=== PATIENT | female | born 1985 | race Caucasian/White ===

== ENCOUNTER 2017-05-22 05:50 | Inpatient (IN) | payer OTHER ==
[~2017-05-22] VITALS: Ht 152.4 cm; Wt 103.4 kg
[~2017-05-22 05:50] MED LIST: FISH OIL300 MG PO; PRENATAL CAPSU1 EACH PO; ZOFRAN4 MG PO
--- NOTE | 2017-05-22 09:38 | PR ---
[facility] [address] [facility] [place], [place] [address] Signed Progress Notes IP Datetime Report Generated by CPN: 05/22/2017 09:38 PROGRESS NOTES: [id number] Other Impressions: Induction with GBS+ Procedures: Artificial ROM Plan: Continue present management; Anticipate Vaginal Delivery VITAL SIGNS: [id number] Vital Signs: Reviewed; Within Normal Limits EXAM: [id number] Dilatation: 4.5 Effacement: 50 Station: -3 Uterine Contractions: none MEMBRANES: [id number] Membrane Status: Ruptured Amniotic Fluid Color: Clear ROM Note: AROM without difficulty Comments: Received 1st dose PCN @ 0715 Would like Epidural when contractions get started Fetus A: [id number] FHR Baseline: 130 Variability: Moderate 6-25bpm Accelerations: 15X15 Presentation: Vertex Fetus B: [id number] Signing Physician: Jerrica Navas MD CC: *Electronically Signed* 05/22/1738 JERRICA NAVAS MD PATIENT NAME: HERBIE VICTOR PROGRESS NOTE DATE OF : 87 PHYSICIAN: JERRICA NAVAS MD RPT #: [id number] REPORT IS CONFIDENTIAL AND NOT TO BE RELEASED WITHOUT AUTHORIZATION
--- NOTE | 2017-05-23 12:22 | PR ---
[facility] [address] [facility] [place] [address] Signed PP Progress Notes Datetime Report Generated by CPN: 05/23/2017 12:22 SUBJECTIVE: [id number] Pain: Within normal limits Nausea/Vomiting: Denies Vital Signs: [id number] Vital Signs: Reviewed; Within Normal Limits Notable Details: PP Hgb/Hct = 10.7/31.4 EXAM: [id number] Abdomen/Uterus: Normal Lochia: Normal Extremities: Normal IMPRESSION/PLAN/PROCEDURES: [id number] Impression: Normal progression Plan: Continue present management Procedures: None Progress Notes: Doing well, without complaint. Home tomorrow Signing Physician: Jerrica Navas MD CC: *Electronically Signed* 05/23/17 1222 JERRICA NAVAS MD PATIENT NAME: HERBIE VICTOR PROGRESS NOTE DATE OF : [birth year] PHYSICIAN: JERRICA NAVAS MD RPT #: [id number] REPORT IS CONFIDENTIAL AND NOT TO BE RELEASED WITHOUT AUTHORIZATION
--- NOTE | 2017-05-24 09:43 | PR ---
[facility] [address] [facility] [place], [place] [address] Signed PP Progress Notes Datetime Report Generated by CPN: 05/24/2017 09:43 SUBJECTIVE: [id number] Pain: Within normal limits Nausea/Vomiting: Denies Flatus: Yes Vital Signs: [id number] Vital Signs: Reviewed; Within Normal Limits Notable Details: PP Hgb/Hct = 10.7/31.4 EXAM: [id number] Cardiovascular: Normal Respiratory: Normal Abdomen/Uterus: Normal Lochia: Normal Vulva/Perineum: Normal Breasts: Normal CVA Tenderness: Normal Extremities: Normal Incision: Not Applicable Progress: Normal IMPRESSION/PLAN/PROCEDURES: [id number] Impression: Normal progression Plan: Discharge Procedures: None Progress Notes: patient doing well wanting to go home. GBS pos Signing Physician: Aimee Peterosn MD CC: *Electronically Signed* 05/24/17 0943 AIMEE PETERSON MD PATIENT NAME: HERBIE VICTOR PROGRESS NOTE DATE OF : 87 PHYSICIAN: AIMEE PETERSON MD RPT #: [id number] REPORT IS CONFIDENTIAL AND NOT TO BE RELEASED WITHOUT AUTHORIZATION
== END 2017-05-24 14:45 | disposition home or self-care (01) | DRG 775 ==
LOC: FBC 06:08 → EDSTATUS 05-24 10:36 → FBCO 05-24 14:34 → FBC 05-24 14:45
PROVIDERS: ADMIT General Practice
PROC: 10E0XZZ Delivery of Products of Conception, External Approach (ICD-10-PCS; principal; 2017-05-22)
PROC: 0UQMXZZ Repair Vulva, External Approach (ICD-10-PCS; 2017-05-22)
PROC: 10907ZC Drainage of Amniotic Fluid, Therapeutic from Products of Conception, Via Natural or Artificial Opening (ICD-10-PCS; 2017-05-22)
PROC: 00HU33Z Insertion of Infusion Device into Spinal Canal, Percutaneous Approach (ICD-10-PCS; 2017-05-22)
PROC: 3E0R3CZ (ICD-10-PCS; 2017-05-22)
DX: O99.824 Streptococcus B carrier state complicating childbirth (principal); O69.81X0 Labor and delivery complicated by cord around neck, without compression, not applicable or unspecified; O71.82 Other specified trauma to perineum and vulva; O43.193 Other malformation of placenta, third trimester; Z3A.39 39 weeks gestation of pregnancy; Z37.0 Single live birth
CPT/HCPCS: 36415; 85027; J2405; J2540; J2590; J3010

== ENCOUNTER 2018-08-27 06:20 | Inpatient (IN) | payer OTHER ==
[~2018-08-27] VITALS: Ht 180.3 cm; Wt 103.0 kg
--- OUTSIDE RECORDS SUMMARY | ~2018-08-27 | XMS | Clinical Summary ---
Demographics + + + | Address | [address] | | | [place] [address] | + + + | Home Phone | | + + + | Preferred Language | Unknown | + + + | Marital Status | Unknown | + + + | Uatsdin Affiliation | Unknown | + + + | Race | Unknown | + + + | Ethnic Group | Unknown | + + + Author + + + | Author | [facility] [employer] | + + + | Organization | [facility] [employer] | + + + | Address | Unknown | + + + | Phone | Unavailable | + + + Support + + +---------+ + | Name | Relationship | Address | Phone | + + +---------+ + | Maurisio Bashir | ECON | Unknown | | + + +---------+ + Care Team Providers + +------+ + | Care Collections Professional Name | Role | Phone | + +------+ + PP | Unavailable | + +------+ + Allergies No Known Allergies Current Medications + + +-------+---------+------+------+-------+ | Prescription | Sig. | Disp. | Refills | Star | End | Statu | | | | | | t | Date | s | | | | | | Date | | | + + +-------+---------+------+------+-------+ | Vit-Fe | Take 1 tablet by | | | | | Activ | | Fumarate-FA | mouth daily with | | | | | e | | ( | breakfast. | | | | | | | MULTIVITAMIN & | | | | | | | | MINERALS W IRON/FA) | | | | | | | | 27-0.8 MG TABS | | | | | | | | tablet | | | | | | | + + +-------+---------+------+------+-------+ Active Problems Not on file Social History + +-------+ +--------+------+ | Tobacco Use | Types | Packs/Day | Years | Date | | | | | Used | | + +-------+ +--------+------+ | Never Smoker | | | | | + +-------+ +--------+------+ + + +---------+ + | Alcohol Use | Drinks/We | oz/Week | Comments | | | ek | | | + + +---------+ + | No | | | | + + +---------+ + + + + + | Currently | Estimated Date of Delivery | Comments | + + + + | Yes | | | + + + + + + + | Sex Assigned at | Date Recorded | | | | + + + | Not on file | | + + + Last Filed Vital Signs + + + + | Vital Sign | Reading | Time Taken | + + + + | Blood Pressure | 110/70 | 01/22/2017 3:38 PM PST | + + + + | Pulse | 98 | 01/22/2017 3:38 PM PST | + + + + | Temperature | - | - | + + + + | Respiratory Rate | - | - | + + + + | Oxygen Saturation | 99% | 01/22/2017 3:38 PM PST | + + + + | Inhaled Oxygen | - | - | | Concentration | | | + + + + | Weight | 100.5 kg (221 lb 9.6 | 01/22/2017 3:38 PM PST | | | oz) | | + + + + | Height | 177.8 cm (5' 10") | 01/22/2017 3:38 PM PST | + + + + | Body Mass Index | 31.8 | 01/22/2017 3:38 PM PST | + + + + Plan of Treatment + + + + + | Health Maintenance | Due Date | Last Done | Comments | + + + + + | Vaccine: | | | | | Dtap/Tdap/Td (1 - | 5 | | | | Tdap) | | | | + + + + + | Cervical Cancer | | | | | Screening (Pap) | 6 | | | + + + + + | Vaccine: Influenza | | | | | (#1) | 8 | | | + + + + + Results Not on filefrom Last 3 Months Insurance + +--------+ +------+-------+ + | Payer | Benefi | Subscriber | Type | Phone | Address | | | t Plan | ID | | | | | | / | | | | | | | Group | | | | | + +--------+ +------+-------+ + | MEDICAID | [employer] | [id number] | | | [address] | | | [place] | | | | [place] | | | [place] | | | | [phone] | | | REALTY SPECIALIST | | | | | + +--------+ +------+-------+ + + +--------+ +--------+ + + | Guarantor Name | Accoun | Relation to | Date | Phone | Billing Address | | | t Type | Patient | of | | | | | | | | | | + +--------+ +--------+ + + | JAILENE BASHIR | Person | Self | [birth year] Home: | [address] | | | [place] | | 1984 | [phone] | [place] | | | [place] | | | [phone] | [phone] | + +--------+ +--------+ + +
--- OUTSIDE RECORDS SUMMARY | ~2018-08-27 | XMS ---
Demographics + + + | Address | [address] | | | [place] [address] | + + + | Preferred Language | Unknown | + + + | Marital Status | Unknown | + + + | Catholic Affiliation | Unknown | + + + | Race | Unknown | + + + | Ethnic Group | Unknown | + + + Author + + + | Author | [facility] | + + + | Organization | [facility] | + + + | Address | [address] | | | [place] [address] | + + + | Phone | | + + + Care Team Providers + + + + | Care Associate Professor Of Education Name | Role | Phone | + + + + Unavailable | Unavailable | + + + + PROBLEMS Unknown Problems ALLERGIES + + + + +---------+ | Substance | Reaction | Event Type | Date | Status | + + + + +---------+ | N.K.D.A. | Unknown | Non Drug | May, | Unknown | | | | Allergy | | | + + + + +---------+ SOCIAL HISTORY No smoking Hx information available PLAN OF CARE + +---------+ | Activity | Details | + +---------+ +---+ | | +---+ + + + | Follow Up | 3 Weeks Reason:null | + + + VITAL SIGNS + + + + | Height | 70 in | 2017-06-10 | + + + + | Weight | 208 lbs | 2017-06-10 | + + + + | BMI | 29.84 kg/m2 | 2017-06-10 | + + + + | Temperature | 98.3 degrees Fahrenheit | 2017-06-10 | + + + + | Heart Rate | 80 /min | 2017-06-10 | + + + + | Blood pressure systolic | 106 mm Hg | 2017-06-10 | + + + + | Blood pressure diastolic | 70 mm Hg | 2017-06-10 | + + + + MEDICATIONS + + + + +--------+ + +--------+ | Medicati | Instruct | Dosage | Frequenc | Start | End Date | Duration | Status | | on | ions | | y | Date | | | | + + + + +--------+ + +--------+ | | Orally | 1 | 24h | | | | Active | | DHA 200 | Once a | capsule | | | | | | | MG | day | with a | | | | | | | | | meal | | | | | | + + + + +--------+ + +--------+ RESULTS No Results PROCEDURES + + + + + | Procedure | Date Ordered | Related Diagnosis | Body Site | + + + + + | visit | June 10, 2017 | | | + + + + + IMMUNIZATIONS No Known Immunizations"
--- OUTSIDE RECORDS SUMMARY | ~2018-08-27 | XMS ---
Demographics + + + | Address | [address] | | | [place] [address] | + + + | Preferred Language | Unknown | + + + | Marital Status | Unknown | + + + | Sikhism Affiliation | Unknown | + + + | Race | Unknown | + + + | Ethnic Group | Unknown | + + + Author + + + | Author | [facility] | + + + | Organization | [facility] | + + + | Address | [address] | | | [place] [address] | + + + | Phone | | + + + Care Team Providers + + + + | Care Digital Performance Analyst Name | Role | Phone | + + + + Unavailable | Unavailable | + + + + PROBLEMS Unknown Problems ALLERGIES No Known Allergies SOCIAL HISTORY No smoking Hx information available PLAN OF CARE + +---------+ | Activity | Details | + +---------+ +---+ | | +---+ + + + | Follow Up | prn Reason:null | + + + VITAL SIGNS MEDICATIONS + + + + +--------+ + [...] | + + + + + | OB CARE - Vaginal | May 22, 2017 | | | | Del., antepartum, & | | | | | | | | | + + + + + IMMUNIZATIONS No Known Immunizations"
--- NOTE | 2018-08-27 12:07 | PR ---
[facility] [address] [facility] [place], [place] [address] Signed Progress Notes IP Datetime Report Generated by CPN: 08/27/2018 12:06 PROGRESS NOTES: [id number] Impression: Normal progression of labor Procedures: Artificial ROM Plan: Continue present management; Anticipate Vaginal Delivery VITAL SIGNS: J8375869 Vital Signs: Reviewed; Within Normal Limits EXAM: [id number] Dilatation: 5.0 Effacement: 50 Station: -3 Uterine Contractions: rare MEMBRANES: S5824672 Membrane Status: Ruptured Amniotic Fluid Color: Clear ROM Note: AROM without difficulty. Moderate clear fluid. Head well-applied to cervix Comments: Comfortable with Epidural. Had bradycardia right after Epidural, given Ephedrine Fetus A: [id number] FHR Baseline: 150 Variability: Moderate 6-25bpm Accelerations: 15X15 Presentation: Vertex Fetus B: [id number] Signing Physician: Jerrica Navas MD Copies: ~ *Electronically Signed* 08/27/18 1206 JERRICA NAVAS MD PATIENT NAME: HERBIE VICTOR PROGRESS NOTE DATE OF : 87 PHYSICIAN: JERRICA NAVAS MD RPT #: [id number] REPORT IS CONFIDENTIAL AND NOT TO BE RELEASED WITHOUT AUTHORIZATION
--- NOTE | 2018-08-27 15:55 | PR ---
[facility] [address] [place], [place] [address] Signed Progress Notes IP Datetime Report Generated by CPN: 08/27/2018 15:55 PROGRESS NOTES: [id number] Impression: Normal progression of labor Procedures: Artificial ROM Plan: Continue present management; Anticipate Vaginal Delivery VITAL SIGNS: E0990181 Vital Signs: Reviewed; Within Normal Limits EXAM: Q0861708 Dilatation: 10.0 Effacement: 100 Station: 0 Uterine Contractions: every b3-4 minutes MEMBRANES: Z3190601 Membrane Status: Ruptured Amniotic Fluid Color: Clear ROM Note: AROM without difficulty. Moderate clear fluid. Head well-applied to cervix Comments: Epidural not working , so given Intrathecal, now comfortble. Tried pushing x1 , but not able to push, so will wait a few more contracitons and try again. Fetus A: [id number] FHR Baseline: 140 Variability: Moderate 6-25bpm Accelerations: 10X10 Presentation: Vertex Fetus B: [id number] Signing Physician: Med Navas MD Copies: ~ *Electronically Signed* 08/27/18 1555 MED NAVAS MD PATIENT NAME: VALENTEHERBIE WU PROGRESS NOTE DATE OF : 87 PHYSICIAN: MED NAVAS MD RPT #: [id number] REPORT IS CONFIDENTIAL AND NOT TO BE RELEASED WITHOUT AUTHORIZATION
--- NOTE | 2018-08-28 08:13 | PR ---
[facility] [address] [facility] [place] [address] Signed PP Progress Notes Datetime Report Generated by CPN: 08/28/2018 08:13 SUBJECTIVE: [id number] Pain: Within normal limits Nausea/Vomiting: Denies Vital Signs: [id number] Vital Signs: Reviewed; Within Normal Limits Notable Details: PP Hgb/Hct = 12.2/37.0 EXAM: [id number] Abdomen/Uterus: Normal Lochia: Normal Extremities: Normal IMPRESSION/PLAN/PROCEDURES: [id number] Impression: Normal progression Plan: Continue present management Procedures: None Progress Notes: Doing well, without complaint. Signing Physician: Jerrica Navas MD Copies: ~ *Electronically Signed* 08/28/18812 JERRICA NAVAS MD PATIENT NAME: HERBIE VICTOR PROGRESS NOTE DATE OF : 87 PHYSICIAN: JERRICA NAVAS MD RPT #: [id number] REPORT IS CONFIDENTIAL AND NOT TO BE RELEASED WITHOUT AUTHORIZATION
--- NOTE | 2018-08-29 10:29 | PR ---
[facility] [address] [facility] [place] [address] Signed PP Progress Notes Datetime Report Generated by CPN: 08/29/2018 10:29 SUBJECTIVE: [id number] Pain: Within normal limits Nausea/Vomiting: Denies Vital Signs: [id number] Vital Signs: Reviewed; Within Normal Limits Notable Details: PP Hgb/Hct = 12.2/37.0 EXAM: [id number] Abdomen/Uterus: Normal Lochia: Normal Extremities: Normal IMPRESSION/PLAN/PROCEDURES: [id number] Impression: Normal progression Plan: Discharge Procedures: None Progress Notes: Doing well, ready to go home. Signing Physician: Jerrica Navas MD Copies: ~ *Electronically Signed* 08/29/18 1029 JERRICA NAVAS MD PATIENT NAME: HERBIE VICTOR PROGRESS NOTE DATE OF : 87 PHYSICIAN: JERRICA NAVAS MD RPT #: [id number] REPORT IS CONFIDENTIAL AND NOT TO BE RELEASED WITHOUT AUTHORIZATION
== END 2018-08-29 11:35 | disposition home or self-care (01) | DRG 807 ==
LOC: FBC 06:20
PROVIDERS: ADMIT General Practice
PROC: 10E0XZZ Delivery of Products of Conception, External Approach (ICD-10-PCS; principal; 2018-08-27)
PROC: 10907ZC Drainage of Amniotic Fluid, Therapeutic from Products of Conception, Via Natural or Artificial Opening (ICD-10-PCS; 2018-08-27)
PROC: 00HU33Z Insertion of Infusion Device into Spinal Canal, Percutaneous Approach (ICD-10-PCS; 2018-08-27)
PROC: 3E0R3BZ Introduction of Anesthetic Agent into Spinal Canal, Percutaneous Approach (ICD-10-PCS; 2018-08-27)
DX: O80 Encounter for full-term uncomplicated delivery (principal); Z37.0 Single live birth; Z3A.39 39 weeks gestation of pregnancy
CPT/HCPCS: 36415; 85027; J2540; J2590; J2795; J3010; J7030; J7042; J7120

== ENCOUNTER 2022-02-12 22:41 | Emergency (ER) | payer OTHER ==
[~2022-02-12] VITALS: Ht 180.3 cm; Wt 109.0 kg
[2022-02-12] MEDS ORDERED: LIOTHYRONINE SO5 MCG PO (23:11)
[2022-02-12] MEDS ORDERED: LEVOTHYROXINE100 MCG PO (23:11)
[2022-02-13] MEDS ORDERED: HYDROCODON-ACE1 EA10 PO (01:20)
[2022-02-13] MEDS ORDERED: ONDANSETRON ODT4 MG PO (01:20)
--- NOTE | 2022-02-13 12:38 | EKG ---
[facility] [address] [facility] [place] [address] Signed Normal sinus rhythm Possible Left atrial enlargement Borderline ECG No previous ECGs available Confirmed by MYNOR MEEHAN MD ([id number]) on 02/13/2022 12:38:08 PM Electronically Signed By: MYNOR MEEHAN MD 02/13/22 1238 PATIENT NAME: HERBIE VICTOR Electrocardiogram DATE OF : 87 PHYSICIAN: MYNOR MEEHAN MD REPORT #: [id number] REPORT IS CONFIDENTIAL AND NOT TO BE RELEASED WITHOUT AUTHORIZATION
== END 2022-02-13 01:43 | disposition home or self-care (01) ==
LOC: ED 22:41
DX: K80.70 Calculus of gallbladder and bile duct without cholecystitis without obstruction (principal); R74.01 Elevation of levels of liver transaminase levels; E03.9 Hypothyroidism, unspecified; Z79.899 Other long term (current) drug therapy
CPT/HCPCS: 36415; 76705; 80053; 81001; 83690; 84484; 84703; 85025; 93005; 93010; 99285-25

== ENCOUNTER 2022-07-06 07:48 | Day surgery (SDC) | payer OTHER ==
[~2022-07-06] VITALS: Ht 180.3 cm; Wt 111.4 kg
[~2022-07-06 07:48] MED LIST changes: +HYDROCODON-ACE1 EA10 PO; +LEVOTHYROXINE100 MCG PO; +LIOTHYRONINE SO5 MCG PO; +ONDANSETRON ODT4 MG PO
--- NOTE | 2022-07-06 10:42 | NUR ---
07/06/22 [place]2 Myla Dean 1038- PT ARRIVES TO PACU NONAROUSABLE TO STIMULI WITH AN OPA IN PLACE. RESP EVEN AND UNLABORED. OXYGEN SAT HIGH 90'S TO 100% ON 6L VIA MASK. ICE PACK PLACED TO PT'S ABD.
--- NOTE | 2022-07-06 11:21 | NUR ---
1115-PATIENT BACK TO ROOM FROM PACU ON . RECEIVED REPORT FROM ROSSY TAMEZ. NOLBERTO IS DROWSY. RESP EVEN AND UNLABORED. RATES PAIN 3/10, DENIES NAUSEA. ALL 4 LAP SITES ARE CLEAN, DRY, AND INTACT. ICE PACK IN PLACE. PATIENT TAKING SIPS OF WATER. DECLINES SNACK AT THIS TIME. STATES SHE NEEDS TO USE THE RESTROOM BUT WILL WAIT A LITTLE BIT. AT BEDSIDE. CALL LIGHT WITHIN REACH.
--- NOTE | 2022-07-06 11:35 | NUR ---
1130-PATIENT STATES 6/10 PAIN AND NAUSEA. 1135-NAUSEA MEDICATION GIVEN PER EMAR. 1145-PATIENT UP TO SIDE OF BED. PATIENT DEINES NAUSEA BUT STATES SOME DIZZINESS. PATIENT THEN UP TO BEDSIDE COMMODE WITH 1 RN ASSIST AND HER . PATIENT VOIDED 400ML OF YELLOW URINE. 1150-PATIENT BACK TO BED. PAIN MEDICATION GIVEN PER EMAR. ISABEL HUGGER TURNED ON. AT BESIDE. CALL LIGHT WITHIN REACH.
--- NOTE | 2022-07-06 13:39 | NUR ---
1215-PATIENT LAYING IN BED WITH EYES CLOSED. RESP EVEN AND UNLABORED. RATES PAIN 5-6/10. DENIES NAUSEA. DRESSING HAS A SMALL AMOUNT OF RED DRAINAGE. ICE PACK IN PLACE. PATIENT HAS WATER AND CRACKERS IF NEEDED. AT BEDSIDE. CALL LIGHT WITHIN REACH.
--- NOTE | 2022-07-06 13:43 | NUR ---
1322-PATIENT LAYING IN BED WITH EYES CLOSED. AWAKES EASY AND ANSWERS QUESTIONS. RESP EVEN AND UNLABORED. RATES PAIN 3/10. DENIES NASUEA. DRESSINGS HAVE A SMALL AMOUNT OF RED DRAINAGE. ICE PACK IN PLACE. 1327-PATIENT UP TO RESTROOM WITH 1 RN ASSIST. GAIT STEADY AND TOLERATED WELL. 1335-PATIENT BACK TO BED. STATES NOT READY TO GO HOME AT THIS POINT. FEELS A LITTLE LIGHTHEADED. PATIENT EATING CRACKERS AND DRINKING WATER. CALL LIGHT WITHIN REACH.
--- NOTE | 2022-07-06 14:13 | NUR ---
1355-PATIENT READY TO GO HOME. PATIENT GETTING DRESSED. 1405-PROVIDED PATIENT WITH DISCHARGE INSTRUCTIONS. ALL QUESTIONS ANSWERED. PATIENT AMBULATES TO WHEELCHAIR. TOLERATED WELL. RIDE PROVIDED TO FRONT OF HOSPITAL WHERE WAS WAITING WITH THE CAR.
--- NOTE | 2022-07-07 08:14 | OR ---
[facility] [address] [place], [place] [address] Signed DATE OF OPERATION: 07/06/2022 SURGEON: Shan Frey MD PREOPERATIVE DIAGNOSES: 1. Chronic cholecystitis, cholelithiasis. 2. Biliary colic. POSTOPERATIVE DIAGNOSES: 1. Cholecystitis with cholelithiasis x3. 2. Biliary colic. 3. Cholesterolosis. PROCEDURE: Laparoscopic cholecystectomy without intraoperative cholangiogram. ESTIMATED BLOOD LOSS: None. FINDINGS: Jailene indeed had three stones in the gallbladder. Two stones measured about 12 mm or so in diameter. The other was probably less than 10 mm in diameter. She did have significant cholesterolosis. We could not pass the intraoperative cholangiocatheter pass the valves of Heister. We therefore abandoned our intraoperative cholangiogram. INDICATIONS: Jailene is a 37-year-old, obese female, asked to see me for her gallbladder. She has now had four children. All born vaginally. She and her have elected not to have any additional children. She has been having chest pain radiating through to her back in January of 2022. She had been to the emergency room for evaluation. Cardiac evaluation was negative. Liver function tests were elevated with a normal lipase and white count. Beta-HCG was negative. Ultrasound confirmed a dilated gallbladder with gallstones. The gallbladder wall was not thickened. The common bile duct was unremarkable at 3 mm. Her pain had resolved and she was allowed to go home from the emergency room. She was asked to follow up with me as a general surgeon. She has been doing well without any additional significant attacks of biliary colic. She is very busy taking care of the four children. She therefore had to consult with her family to decide on the best time to have her surgery. In the office, I had given her a brochure on the gallbladder. We had looked at the brochure page by page. She understands the location and function of the gallbladder. We discussed laparoscopic versus open Electronically Signed By: SHAN FREY MD 07/07/22 0814 PATIENT NAME: JAILENE VICTOR OPERATIVE REPORT DATE OF : 87 REPORT #: [id number] PHYSICIAN: SHAN FREY MD PCP: DEMARCUS REDMOND DO REPORT IS CONFIDENTIAL AND NOT TO BE RELEASED WITHOUT AUTHORIZATION [facility] [address] [place], [place] [address] Signed cholecystectomy. We reviewed the expected intraop and postop course. There is risk including, but not limited to bleeding, infection, scarring, change in contour of the skin, damage to bowel, damage to main bile duct, incisional hernias and other unforeseen comorbidities. She had expressed understanding and wished to proceed. PROCEDURE NOTE: I met with Jailene and her in the preop area. After this, she was taken in the operating room and placed in the supine position under general endotracheal tube anesthesia. She was given preoperative antibiotics along with subcutaneous heparin. SCDs were utilized. She was then prepped and draped in the usual sterile fashion. All trocars were placed in their usual positions under direct visualization of the camera without difficulty. We had taken pictures throughout for photodocumentation. The gallbladder had been grasped and elevated into the right upper quadrant. The triangle of Calot was dissected free with the help of a [place] dissectors. Several clips have been placed on the cystic artery. We then passed our intraoperative cholangiogram into the cystic duct. Unfortunately, would not pass through the valves of Heister. We therefore abandoned our intraoperative cholangiogram. The cystic duct stump was secured with a PDS Endoloop along with a single clip across the cystic duct stump to valentin its location. The gallbladder was then removed from the gallbladder fossa with the help of the cautery and placed into an EndoCatch bag. The right upper quadrant was irrigated and suctioned out until clear. We used our laparoscopic suturing device to pass 0-Vicryl sutures on either side of the fascia of the subxiphoid trocar site. This was tied down to close this fascia primarily. After this, all the gas was allowed to escape and all the trocars were removed along with the gallbladder. The gallbladder was opened on the back table for photodocumentation by our circulating nurse. It demonstrated the three gallstones in the significant cholesterolosis. We closed the fascia at the supraumbilical trocar site with interrupted [id number] and simple 0-Vicryl sutures. Local anesthetic was injected into all trocar sites. Each trocar site was irrigated and suctioned out until clear. The skin and dermis of each trocar site were reapproximated with interrupted 3-0 subcuticular Monocryl sutures. Dry gauze and tape were applied to all incisions. After this, Jailene was awakened from anesthesia, extubated in the OR, and taken to the recovery room in stable condition. Shan Frey MD ALB/MODL /[id number] Electronically Signed By: SHAN FREY MD 07/07/22 0814 PATIENT NAME: JAILENE VICTOR OPERATIVE REPORT DATE OF : 87 REPORT #: [id number] PHYSICIAN: SHAN FREY MD PCP: DEMARCUS REDMOND DO REPORT IS CONFIDENTIAL AND NOT TO BE RELEASED WITHOUT AUTHORIZATION [facility] [address] [facility] [place] [place] [address] Signed cc: MD Demarcus Moon DO Copies: SHAN FREY MD, ARIAN DO ~ Electronically Signed By: SHAN FREY MD 07/07/22 0814 PATIENT NAME: JAILENE VICTOR OPERATIVE REPORT DATE OF : 87 REPORT #: [id number] PHYSICIAN: SHAN FREY MD PCP: DEMARCUS REDMOND DO REPORT IS CONFIDENTIAL AND NOT TO BE RELEASED WITHOUT AUTHORIZATION
--- NOTE | 2022-07-09 12:15 | PATH ---
[facility] [address] [facility] [place], [place] [address] Signed SPECIMEN(S): A GALLBLADDER WITH STONES SPECIMEN SOURCE: A. GALLBLADDER WITH STONES CLINICAL HISTORY: Calculus of gallbladder with chronic cholecystitis FINAL PATHOLOGIC DIAGNOSIS: Gallbladder with stones: - Chronic calculous cholecystitis. - Mucosal cholesterolosis. JVR:lisa:C2NR MICROSCOPIC EXAMINATION: Histologic sections of all submitted blocks are examined by light microscopy. These findings, together with the gross examination, support the pathologic diagnosis. GROSS DESCRIPTION: The specimen, labeled "EA, gallbladder," is received in formalin and consists of Specimen: Previously opened gallbladder. Dimensions: 5.7 cm in length and 4.2 cm in inner circumference. Serosa: violaceous and smooth. Cystic Duct: unobstructed. Calculi: Four yellow gallstones within the container that range in size from 0.4-1.0 cm in greatest dimension. Mucosa: [place]-srinivasan and velvety with yellow flecking. Wall thickness: 0.5 cm. Lymph node: No pericystic lymph nodes are grossly identified. Additional: None. Manager Product Design sections are submitted in cassette (A1). JS (under the direct supervision of a pathologist) The Gross Description was prepared using a voice recognition system. The report was reviewed for accuracy; however, sound-alike word errors, addition and/or deletions may occur. If there is any question about this report, please contact Client Services. PERFORMING LABORATORY: The technical component was performed by [employer], Melanie Jiang, PATIENT NAME: HERBIE VICTOR PATHOLOGY DATE OF : 87 REPORT #: [id number] PHYSICIAN: BETTINA RIVAS PCP: DEMARCUS REDMOND DO REPORT IS CONFIDENTIAL AND NOT TO BE RELEASED WITHOUT AUTHORIZATION [facility] [address] [facility] [place], [place] [address] [place] [address] (CLIA# [id number]). Professional interpretation was performed by [facility] - [address] [address] (CLIA#: [id number]). Diagnostician: You Arteaga MD Pathologist Electronically Signed 07/09/2022 Copies: ~ PATIENT NAME: HERBIE VICTOR PATHOLOGY DATE OF : [birth year] REPORT #: [id number] PHYSICIAN: BETTINA RIVAS PCP: DEMARCUS REDMOND DO REPORT IS CONFIDENTIAL AND NOT TO BE RELEASED WITHOUT AUTHORIZATION
== END 2022-07-06 14:05 | disposition home or self-care (01) ==
LOC: DS 07:48
PROVIDERS: ATTEND Colon & Rectal Surgery
PROC: 0FT44ZZ Resection of Gallbladder, Percutaneous Endoscopic Approach (ICD-10-PCS; principal; 2022-07-06 09:15)
DX: K80.10 Calculus of gallbladder with chronic cholecystitis without obstruction (principal); E03.9 Hypothyroidism, unspecified; E66.9 Obesity, unspecified; Z68.34 Body mass index [BMI] 34.0-34.9, adult
CPT/HCPCS: J0131; J0690; J1100; J1644; J1885; J2001; J2250; J2405; J2550; J2704; J7121

== ENCOUNTER 2023-12-24 05:37 | Day surgery (SDC) | payer OTHER ==
[2023-12-19 09:40] VITALS: BP 124/82
[~2023-12-24] VITALS: Ht 180.3 cm; Wt 106.8 kg
[~2023-12-24 05:37] MED LIST changes: +OSTERA TABLET1 EACH PO; +PROBIOTIC1 EAC9 PO
[2023-12-24 05:56] VITALS: BP 120/79
[2023-12-24 10:11] VITALS: BP 109/69
[2023-12-24 11:14] VITALS: BP 110/73
[2023-12-24 12:09] VITALS: BP 110/68
--- NOTE | 2023-12-26 21:00 | OR ---
[facility] [address] [place], [place] [address] Signed DATE OF OPERATION: 12/24/2023 SURGEON: Lorrie Cartwright DO PREOPERATIVE DIAGNOSES: 1. Abnormal uterine bleeding. 2. Dysmenorrhea. 3. Adenomyosis. POSTOPERATIVE DIAGNOSES: 1. Abnormal uterine bleeding. 2. Dysmenorrhea. 3. Adenomyosis. PROCEDURES PERFORMED: 1. Total laparoscopic hysterectomy. 2. Bilateral salpingectomy. 3. Cystoscopy. TECHNICAL ANALYST: Christine Cobian MD ANESTHESIA: General. ESTIMATED BLOOD LOSS: 50 mL. SPECIMENS: 1. Uterus and cervix. 2. Bilateral fallopian tubes. DRAINS: Rivera to gravity. PACKING: None. FINDINGS: Normal external genitalia with normal clitoris, urethral meatus, bilateral Millsap's Electronically Signed By: LORRIE CARTWRIGHT DO (JD) 12/26/23 2100 PATIENT NAME: HERBIE VICTOR OPERATIVE REPORT DATE OF : [birth year] REPORT #: [id number] PHYSICIAN: LORRIE CARTWRIGHT DO (JD) PCP: DEMARCUS REDMOND DO REPORT IS CONFIDENTIAL AND NOT TO BE RELEASED WITHOUT AUTHORIZATION [facility] [address] [place], [place] [address] Signed Bartholin's glands. Normal vagina with good apical support. Normal-appearing cervix. On laparoscopy, normal bilateral tubes and ovaries with a globular enlarged uterus consistent with adenomyosis. Hemostasis at the end of the procedure. On cystoscopy, normal bladder with normal bladder dome and bilateral ureteral jets. COMPLICATIONS: None. INDICATIONS: Ms. Victor is a very pleasant 38-year-old female with a history of worsening heavy painful periods. Ultrasound was suggestive of adenomyosis and the patient has failed multiple modes of conservative therapy. She now wishes to proceed with definitive treatment of adenomyosis with hysterectomy. The patient was consented for total laparoscopic hysterectomy, bilateral salpingectomy, and cystoscopy. Risks, benefits, and alternatives were discussed in detail with the patient. The patient understands and wishes to proceed with the procedure. DESCRIPTION OF PROCEDURE: The patient was taken to the operating room where a time-out was performed to confirm correct patient and correct procedure. General anesthesia was adequately established. The patient was prepped and draped in dorsal lithotomy position with feet in Yellofin stirrups. ICPs were running and no preoperative heparin was indicated. She did receive Ancef 2 g preoperatively per SCIP protocol. A Rivera catheter was inserted. A weighted speculum was placed in the vagina. The anterior lip of the cervix was grasped with an Allis clamp. The cervix was gently dilated using Hegar dilators and a VCare uterine manipulator was placed without difficulty. The surgeon's gloves were changed and attention was turned to the belly. Approximately 1-2 cm below the umbilicus, the skin was infiltrated with 0.25% Marcaine with epinephrine and a curvilinear incision was made. The fascia was grasped with hemostats, elevated, and entered sharply using Metzenbaum scissors and a Ellen operative port was placed without difficulty. Pneumoperitoneum was established with low opening pressures appreciated. The survey of the abdomen and pelvis was performed with the above findings. A 5 mm assist port was placed in the left lower quadrant under direct visualization without complication. An 8 mm expanding port was placed in the right lower quadrant under direct visualization without complication. The left fallopian tube was grasped, elevated, and divided along the mesosalpinx using LigaSure device. The tube was amputated at the cornu and delivered and sent to pathology for further evaluation. The left uteroovarian ligament was fulgurated and divided and the left round ligament was fulgurated and divided. Attention was turned to the right side where the process was repeated with dissection of the fallopian tube along the mesosalpinx fulguration and division of the utero-ovarian ligament and the round ligament. The leaves of the broad ligament were then divided, the anterior leaf from the midportion of the round to the anterior edge of Electronically Signed By: LORRIE DUNBAR) DO JAVAD 12/26/23 2100 PATIENT NAME: HERBIE VICTOR OPERATIVE REPORT DATE OF : 87 REPORT #: [id number] PHYSICIAN: LORRIE CARTWRIGHT DO (JD) PCP: DEMARCUS REDMOND DO REPORT IS CONFIDENTIAL AND NOT TO BE RELEASED WITHOUT AUTHORIZATION [facility] [address] [place] [id number] Signed the vaginal cup. This was carried across the anterior portion and the bladder was pressed down well below the vaginal cup. The posterior leaf of the broad ligament was divided from the midportion of the round ligament to the angle of the uterosacral ligament and across the posterior edge of the vaginal cup. The uterine vessels were identified, fulgurated and divided with excellent hemostasis appreciated. The process was repeated on the left with division of the leaves of the broad ligament and fulguration and division of the uterine vessels. Colpotomy was then performed using Sonicision device in a circumferential manner following the edge of the green vaginal cup. The cervix and uterus were then amputated and delivered through the vagina and sent to pathology for further evaluation. Pneumoperitoneum was reestablished by placing a wet lap sponge in a glove and stuffing in the vagina. The pelvis was irrigated and found to be hemostatic. Colpotomy was reapproximated using V-Loc with an Endostitch device in a running nonlocked manner with careful attention to incorporate the uterosacral ligaments bilaterally and the vaginal epithelium with each bite. Excellent hemostasis and apical support was appreciated. The pelvis was again irrigated and found to be hemostatic. Pneumoperitoneum was reduced. Trocars were removed. The infraumbilical fascia was reapproximated using 0 Vicryl in a running nonlocked manner. Incision sites were made hemostatic with Bovie electrocautery and then reapproximated using 4-0 Monocryl and subcuticular stitch. Attention was then turned to cystoscopy. The Rivera catheter was removed and a 70-degree cystoscope was placed in the urethral meatus and advanced under direct visualization into the bladder. Normal bladder with bilateral ureteral jets was appreciated. The bladder was drained. Rivera catheter was reinserted. The patient was taken to PACU in stable condition. Sponge, needle, and instrument count was correct x2 at the end of the procedure. Dr. Cobian was present and participated in all portions of the procedure. DO SANGEETHA Urban/KATERYNAL /[id number] Electronically Signed By: LORRIE CARTWRIGHT DO (JD) 12/26/23 2100 PATIENT NAME: HERBIE VICTOR OPERATIVE REPORT DATE OF : [birth year] REPORT #: [id number] PHYSICIAN: LORRIE CARTWRIGHT DO (JD) PCP: DEMARCUS REDMOND DO REPORT IS CONFIDENTIAL AND NOT TO BE RELEASED WITHOUT AUTHORIZATION [facility] [address] [place] [address] Signed Copies: ~ Electronically Signed By: LORRIE CARTWRIGHT DO (JD) 12/26/23 2100 PATIENT NAME: HERBIE VICTOR OPERATIVE REPORT DATE OF : [birth year] REPORT #: [id number] PHYSICIAN: LORRIE CARTWRIGHT DO (JD) PCP: DEMARCUS REDMOND DO REPORT IS CONFIDENTIAL AND NOT TO BE RELEASED WITHOUT AUTHORIZATION
--- NOTE | 2023-12-27 18:13 | PATH ---
[facility] [address] [place], [place] [address] Signed SPECIMEN(S): A UTERUS, CERVIX, BILATERAL TUBES SPECIMEN SOURCE: A. UTERUS, CERVIX, BILATERAL TUBES CLINICAL HISTORY: AUB, postcoital bleeding. FINAL PATHOLOGIC DIAGNOSIS: Uterus with bilateral fallopian tubes, hysterectomy with bilateral salpingectomy: - Cervix: Nabothian cysts. - Negative for intraepithelial lesion and malignancy. - Endometrium: Mid to late secretory phase endometrium. - Negative for hyperplasia, atypia, and malignancy. - Myometrium: Benign myometrium with no pathologic abnormality. - Serosa: Benign serosa with no pathologic abnormality. - Fallopian tubes: Right and left fallopian tubes with fimbriated ends. - One tube has a 0.8 cm diameter benign paratubal cyst. - Otherwise no pathologic abnormality identified. SDL MICROSCOPIC EXAMINATION: Histologic sections of all submitted blocks are examined by light microscopy. These findings, together with the gross examination, support the pathologic diagnosis. GROSS DESCRIPTION: The specimen, labeled and designated "Krysten Livia" and designated on the requisition "cervix, uterus, bilateral fallopian tubes," is received in formalin and consists of a uterus (trimmed weight: 140 grams, 7.5 cm superior-inferior, 7.0 cm cornu to cornu, 5.4 cm anterior to posterior), attached cervix (2.7 cm in length by 3.2 cm in diameter) with pink-srinivasan to red-brown roughened cervical mucosa and patent slit-shaped os (1.0 x 0.2 cm), and two detached and undesignated fimbriated fallopian tube segments (4.5 cm in length by 1.3 cm in diameter, and 3.3 cm in length by 1.0 cm in diameter). One fallopian tube segment is arbitrarily inked blue. Both fallopian tube segments are brown-srinivasan and are sectioned to reveal a srinivasan-pink soft cut surface with pinpoint lumen. The fimbriae are entirely submitted. PATIENT NAME: HERBIE VICTOR PATHOLOGY DATE OF : [birth year] REPORT #: [id number] PHYSICIAN: BETTINA RIVAS PCP: DEMARCUS REDMOND DO REPORT IS CONFIDENTIAL AND NOT TO BE RELEASED WITHOUT AUTHORIZATION [facility] [address] [place], [place] [address] Signed The uterine serosa is pink-srinivasan and smooth. The cervix is sectioned to reveal a pink-srinivasan herringbone endocervical mucosa (endocervical canal: 2.0 cm in length by 1.2 cm in diameter). Sectioning of the uterus reveals an endometrial cavity (5.5 cm superior to inferior by 3.2 cm cornu to cornu) with red-brown endometrial lining that measures up to 0.4 cm in thickness. The myometrium (3.0 cm in greatest thickness) is pink-srinivasan and trabeculated with no masses or lesions grossly identified. Family Centered Specialist sections are submitted. Cassette Summary: (A1-A2) fallopian tubes (A3) cervix (A4) full-thickness uterine wall AC (under the direct supervision of a pathologist) The Gross Description was prepared using a voice recognition system. The report was reviewed for accuracy; however, sound-alike word errors, addition and/or deletions may occur. If there are any questions about this report, please contact Client Services. ADDITIONAL NOTES: Immunohistochemical and/or in situ hybridization studies if performed in this case included appropriate positive controls that reacted as expected. This test was developed and its performance characteristics determined by [facility]. It has not been cleared or approved by the U.S. Food and Drug Administration. The FDA has determined that such clearance or approval is not necessary. This test is used for clinical purposes. It should not be regarded as investigational or for research. [facility] is certified under the Clinical Laboratory Improvement Amendments of 1988 (CLIA) as qualified to perform high complexity clinical laboratory testing. PERFORMING LABORATORY: Technical component was performed by [facility], [address] [place] [address] (CLIA# [id number]). Professional interpretation was performed by [facility] - [facility], [address] [place] [id number] (CLIA#: [id number]). Diagnostician: Francy Mead MD Pathologist Electronically Signed 12/27/2023 PATIENT NAME: HERBIE VICTOR PATHOLOGY DATE OF : 87 REPORT #: [id number] PHYSICIAN: BETTINA PATHOLOGY PCP: DEMARCUS REDMOND DO REPORT IS CONFIDENTIAL AND NOT TO BE RELEASED WITHOUT AUTHORIZATION [facility] [address] [place] [address] [place] [address] Signed Copies: ~ PATIENT NAME: HERBIE VICTOR PATHOLOGY DATE OF : [birth year] REPORT #: [id number] PHYSICIAN: BETTINA RIVAS PCP: DEMARCUS REDMOND DO REPORT IS CONFIDENTIAL AND NOT TO BE RELEASED WITHOUT AUTHORIZATION
== END 2023-12-24 12:30 | disposition home or self-care (01) ==
LOC: DS 05:37 → OPS 05:37 → DS 07:30 → OPS 07:30
PROVIDERS: ATTEND Obstetrics & Gynecology
PROC: 0UT94ZZ Resection of Uterus, Percutaneous Endoscopic Approach (ICD-10-PCS; principal; 2023-12-24 07:30)
PROC: 0UB74ZZ Excision of Bilateral Fallopian Tubes, Percutaneous Endoscopic Approach (ICD-10-PCS; 2023-12-24 07:30)
DX: N80.03 Adenomyosis of the uterus (principal); N88.8 Other specified noninflammatory disorders of cervix uteri; N83.8 Other noninflammatory disorders of ovary, fallopian tube and broad ligament; N93.9 Abnormal uterine and vaginal bleeding, unspecified; E03.9 Hypothyroidism, unspecified; N93.0 Postcoital and contact bleeding
CPT/HCPCS: 00840; J0131; J0330; J0690; J1100; J1885; J2250; J2405; J2704; J2765; J3010; J3490; J7121